=== PATIENT | female | born 1970 | race Caucasian/White ===

== ENCOUNTER 2017-04-23 02:58 | Emergency (ER) | payer SELFPAY ==
[~2017-04-23] VITALS: Ht 172.7 cm; Wt 72.6 kg
[2017-04-23 02:58] VITALS: BP_SYST 149
[2017-04-23] MEDS ORDERED: NACL 0.9% 1,000 ML IV ONE (03:15)
== END 2017-04-23 03:15 | disposition left against medical advice (07) ==
LOC: SED 02:58
DX: N93.9 Abnormal uterine and vaginal bleeding, unspecified (principal)
CPT/HCPCS: 99281